=== PATIENT | female | born 1995 | race Caucasian/White ===

== ENCOUNTER 2022-06-04 13:58 | Outpatient (CLI) | payer BC | END 2022-06-04 13:59 | disposition home or self-care (01) | LOC: CSHMRI 13:58 | PROVIDERS: ATTEND Nurse Practitioner Family | DX: R93.6 Abnormal findings on diagnostic imaging of limbs (principal); Z33.1 Pregnant state, incidental ==

== ENCOUNTER 2022-07-12 17:05 | Day surgery (SDC) | payer BC ==
[2022-07-12 17:43] VITALS: BMI 40.6
[2022-07-12] MEDS ORDERED: hydrALAZINE 20 MG/ML VIAL SLOW IVP PRN (18:35)
== END 2022-07-12 18:32 | disposition home health service (06) ==
LOC: CSHLD/OP 17:05
PROVIDERS: ATTEND Advanced Practice Midwife
DX: O24.429 Gestational diabetes mellitus in childbirth, unspecified control (principal); O26.893 Other specified pregnancy related conditions, third trimester; R10.13 Epigastric pain; O99.213 Obesity complicating pregnancy, third trimester; E66.9 Obesity, unspecified; Z3A.36 36 weeks gestation of pregnancy

== ENCOUNTER 2023-09-19 18:10 | Emergency (ER) | payer BC ==
[2023-09-19] MEDS ORDERED: diphenhydrAMINE 50 MG/ML VIAL ONE (20:15)
[2023-09-19] MEDS ORDERED: Dexamethasone 10 MG/ML VIAL ONE (20:15)
[2023-09-19] MEDS ORDERED: Metoclopramide HCl 10 MG (2 mL) VIAL ONE (20:15)
[2023-09-19 21:07] LABS: #Eosinphils 0.1 10x3/uL (0.0-0.5); #Monocytes 0.4 10x3/uL (0.0-1.1); #Neutrophils 2.9 10x3/uL (1.5-8.4); %Basophils 0.7 % (0.0-2.0); %Eosinophils 1.8 % (0.0-6.0); %Lymphocytes 43.2 % (18.0-47.0); %Monocytes 6.9 % (0.0-10.0); %Neutrophils 47.2 % (40.0-75.0); Hematocrit 42.3 % (34.9-44.5); Hemoglobin 14.2 g/dL (12.0-15.5); Mean Corpuscular HGB CONC 33.6 g/dL (32.0-36.0); Mean Corpuscular Hemoglobin 29.3 pg (27.0-33.0); Mean Corpuscular Volume 87.4 fl (81.6-98.3); Mean Platelet Volume 10.6 fl (7.4-10.4); Platelet Count 196 10x3/uL (150-450); Red Blood Cell (RBC) Count 4.84 10x6/uL (3.90-5.03); White Blood Cell (WBC) Count 6.1 10x3/uL (3.5-10.5)
[2023-09-19 21:08] LABS: BHCG - Serum Negative (NEGATIVE); Pregs Control Background? CLEAR/WHITE (CLR/WHITE); Pregs Control Bar Appear? YES (CONTROL BAR)
[2023-09-19 21:15] LABS: ALT (SGPT) 11 U/L (8-55); AST (SGOT) 14 U/L (5-34); Albumin 4.1 g/dL (3.5-5.0); Alkaline Phosphatase 70 U/L (40-110); Anion Gap 12 mmol/L (10-20); BUN (Urea Nitrogen) 12 mg/dL (7.0-18.7); Bilirubin, Total 0.3 mg/dL (0.2-1.2); Calc. Creatinine Clearance 0 mL/min (70-130); Calcium 8.6 mg/dL (7.8-10.44); Carbon Dioxide 23 mmol/L (22-29); Chloride 108 mmol/L (98-107); Estimated GFR 97; Globulin 2.7 g/dL (2.4-3.5); Glucose 80 mg/dL (70-105); Potassium 3.7 mmol/L (3.5-5.1); Protein, Total 6.8 g/dL (6.0-8.3); Sodium 139 mmol/L (136-145)
[2023-09-19] MEDS ORDERED: Ketorolac Tromethamine 30 MG (1 mL) VIAL ONE (21:54)
[2023-09-19] MEDS ORDERED: Magnesium 2 GM/50 ML BAG (IN WATER) ONE (21:55)
== END 2023-09-19 22:49 | disposition home or self-care (01) ==
LOC: CSHERS 18:10
DX: R51.9 Headache, unspecified (principal)
CPT/HCPCS: 70450; 80053; 84703; 85025; 96374; 96375; J1100; J1200; J1885; J2765; J3475

== ENCOUNTER 2024-07-06 13:56 | Inpatient (IN) | payer BC ==
[2024-07-06] MEDS ORDERED: Ibuprofen 800 MG TAB PO PRN (16:20)
[2024-07-06] MEDS ORDERED: Lidocaine 1% (PF) 30 ML VIAL SC PRN (16:20)
[2024-07-06] MEDS ORDERED: HYDROcodone/Acetaminophen 5/325 mg Tablet PO PRN (16:20)
[2024-07-06 17:14] VITALS: BMI 34.2
[2024-07-06 17:43] LABS: #Basophils 0.03 10x3/uL (0.0-0.2); #Eosinophils 0.07 10x3/uL (0.0-0.5); #Monocytes 0.47 10x3/uL (0.0-1.1); %Basophils 0.5 % (0.0-2.0); %Eosinophils 1.1 % (0.0-6.0); %Lymphocytes 34.7 % (18.0-47.0); %Monocytes 7.2 % (0.0-10.0); %Neutrophils 56.2 % (40.0-75.0); Hematocrit 38.2 % (34.9-44.5); Hemoglobin 13.1 g/dL (12.0-15.5); Mean Corpuscular HGB CONC 34.3 g/dL (32.0-36.0); Mean Corpuscular Hemoglobin 30.2 pg (27.0-33.0); Mean Platelet Volume 10.7 fL (7.4-10.4); Platelet Count 185 10x3/uL (150-450); RBC Distribution Width 11.9 % (11.5-14.5); Red Blood Cell (RBC) Count 4.34 10x6/uL (3.90-5.03); White Blood Cell (WBC) Count 6.6 10x3/uL (3.5-10.5)
[2024-07-06 17:56] LABS: ALT (SGPT) 11 U/L (8-55); AST (SGOT) 12 U/L (5-34); Albumin 3.1 g/dL (3.5-5.0); Alkaline Phosphatase 70 U/L (40-110); Anion Gap 12 mmol/L (10-20); BUN (Urea Nitrogen) 11 mg/dL (7.0-18.7); Bilirubin, Total 0.2 mg/dL (0.2-1.2); Calc. Creatinine Clearance 167 mL/min (70-130); Calcium 9.2 mg/dL (7.8-10.44); Carbon Dioxide 23 mmol/L (22-29); Chloride 109 mmol/L (98-107); Estimated GFR 122; Glucose 90 mg/dL (70-105); Protein, Total 6.1 g/dL (6.0-8.3); Sodium 140 mmol/L (136-145)
[2024-07-06 18:15] LABS: HBsAg Index 0.21 S/CO (0-0.99); Hep B Surf Ag - L&D Non-Reactive S/CO (NonReactive)
[2024-07-06 18:33] LABS: Syphilis Antibody Nonreactive (Nonreactive); Syphilis Antibody Index 0.06 S/CO (<1.00 Non-Reactive)
[2024-07-06] MEDS: Lactated Ringer's 1,000 ML IV SCH (19:27)
[2024-07-06] MEDS: Zolpidem Tartrate 5 MG TAB PO PRN (19:57)
[2024-07-07] MEDS: Misoprostol 200 MCG TAB VAG SCH ×2 (04:42→07:42)
[2024-07-07] MEDS: Misoprostol 100 MCG TAB VAG SCH (05:02)
[2024-07-07] MEDS ORDERED: Misoprostol 100 MCG TAB VAG SCH (07:00)
[2024-07-07] MEDS ORDERED: Oxytocin 10 UNITS/ML VIAL ONE (09:15)
[2024-07-07] MEDS ORDERED: Oxytocin 30 units/NS 500 ML 0 ML ONE ×2 (09:16→16:28)
[2024-07-07] MEDS: Ketorolac Tromethamine 30 MG (1 mL) VIAL IVP SCH (11:15)
[2024-07-07] MEDS ORDERED: fentaNYL 50 mcg/mL 1 mL Vial ONE (11:34)
[2024-07-07] MEDS: fentaNYL 50 mcg/mL 1 mL Vial SLOW IVP PRN (11:41)
[2024-07-07] MEDS: Carboprost 250 MCG/ML AMP IM PRN (12:19)
[2024-07-07] MEDS: Loperamide HCl 2 MG CAP PO PRN (12:20)
== END 2024-07-07 17:00 | disposition home or self-care (01) | DRG 779 ==
LOC: CSHLD 13:56
PROVIDERS: ADMIT Student in an Organized Health Care Education/Training Program; ATTEND Student in an Organized Health Care Education/Training Program
PROC: 10D07Z8 Extraction of Products of Conception, Other, Via Natural or Artificial Opening (ICD-10-PCS; principal; 2024-07-07)
DX: O02.1 Missed abortion (principal); Z91.018 Allergy to other foods
CPT/HCPCS: 36415; 80053; 85025; 86780; 86850; 86900; 86901; 87340; 88300; 88305; J1885; J3010; J3490

== ENCOUNTER 2025-03-14 16:35 | Day surgery (SDC) | payer BC ==
[2025-03-14] MEDS ORDERED: hydrALAZINE 20 MG/ML VIAL SLOW IVP PRN (17:01)
[2025-03-14 17:12] VITALS: BMI 37.3
[2025-03-14 17:41] LABS: Glucose, Urine (Dipstick) Normal (Negative); Leukocyte 100 (Negative); Protein, Urine (Dipstick) 15 mg/dl (Neg-Trace); Specific Gravity, Urine 1.025 (1.005-1.030)
[2025-03-14 17:49] LABS: CAUTI Indications for Culture Pregnancy; RBC/HPF 0-3 HPF (0-3)
[2025-03-14 17:50] LABS: Bacteria/HPF 2+ HPF (None Seen)
[2025-03-14 17:51] LABS: Mucous/LPF Rare LPF (<2+); Yeast-Budding Rare HPF (None Seen)
[2025-03-14 17:53] LABS: Urine Culture Reflex Yes Yes
[2025-03-14 18:49] LABS: Fetal Membranes Rupture No Membranes Rupture (No Rupture)
[2025-03-14] MEDS ORDERED: Fosfomycin 3 GM/Packet PO SCH (19:30)
== END 2025-03-14 19:40 | disposition home or self-care (01) ==
LOC: CSHLD/OP 16:35
PROVIDERS: ATTEND Student in an Organized Health Care Education/Training Program
DX: O42.912 Preterm premature rupture of membranes, unspecified as to length of time between rupture and onset of labor, second trimester (principal); O24.419 Gestational diabetes mellitus in pregnancy, unspecified control; Z3A.23 23 weeks gestation of pregnancy; Z91.048 Other nonmedicinal substance allergy status; Z91.018 Allergy to other foods; Z88.1 Allergy status to other antibiotic agents
CPT/HCPCS: 81001; 84112; 87086; 87480; 87510; 87660; 99285

== ENCOUNTER 2025-03-19 13:25 | Day surgery (SDC) | payer BC ==
[2025-03-19] MEDS ORDERED: hydrALAZINE 20 MG/ML VIAL SLOW IVP PRN (14:57)
[2025-03-19 15:11] VITALS: BMI 36.6
[2025-03-19 15:58] LABS: Fetal Membranes Rupture No Membranes Rupture (No Rupture)
[2025-03-19 17:00] LABS: Glucose, Urine (Dipstick) Normal (Negative); Leukocyte 25 (Negative); Protein, Urine (Dipstick) 15 mg/dl (Neg-Trace); Specific Gravity, Urine 1.025 (1.005-1.030)
[2025-03-19 17:17] LABS: CAUTI Indications for Culture Pregnancy; RBC/HPF 0-3 HPF (0-3)
[2025-03-19 17:19] LABS: Bacteria/HPF 2+ HPF (None Seen); Mucous/LPF 1+ LPF (<2+)
[2025-03-19 17:21] LABS: Urine Culture Reflex Yes Yes
== END 2025-03-19 18:02 | disposition home or self-care (01) ==
LOC: CSHLD/OP 13:25
PROVIDERS: ATTEND Student in an Organized Health Care Education/Training Program
DX: Z03.71 Encounter for suspected problem with amniotic cavity and membrane ruled out (principal); O23.592 Infection of other part of genital tract in pregnancy, second trimester; B96.89 Other specified bacterial agents as the cause of diseases classified elsewhere; Z88.1 Allergy status to other antibiotic agents; Z91.048 Other nonmedicinal substance allergy status; Z91.018 Allergy to other foods; Z3A.24 24 weeks gestation of pregnancy
CPT/HCPCS: 76815; 76817; 81001; 84112; 87086; 87480; 87510; 87660

== ENCOUNTER 2025-04-27 10:28 | Day surgery (SDC) | payer BC ==
[2025-04-27] MEDS ORDERED: hydrALAZINE 20 MG/ML VIAL SLOW IVP PRN (10:42)
[2025-04-27 10:54] VITALS: BMI 36.6
== END 2025-04-27 11:59 | disposition home health service (06) ==
LOC: CSHLD/OP 10:28
PROVIDERS: ATTEND Student in an Organized Health Care Education/Training Program
DX: O36.8130 Decreased fetal movements, third trimester, not applicable or unspecified (principal); Z3A.29 29 weeks gestation of pregnancy; Z91.018 Allergy to other foods; Z88.1 Allergy status to other antibiotic agents; Z88.8 Allergy status to other drugs, medicaments and biological substances
CPT/HCPCS: 76819; 99283

== ENCOUNTER 2025-06-14 12:37 | Day surgery (SDC) | payer BC ==
[2025-06-14] MEDS ORDERED: hydrALAZINE 20 MG/ML VIAL SLOW IVP PRN (13:10)
== END 2025-06-14 14:02 | disposition home or self-care (01) ==
LOC: CSHLD/OP 12:37
PROVIDERS: ATTEND Student in an Organized Health Care Education/Training Program
DX: O47.1 False labor at or after 37 completed weeks of gestation (principal); Z3A.36 36 weeks gestation of pregnancy; Z79.899 Other long term (current) drug therapy; Z88.1 Allergy status to other antibiotic agents; Z91.018 Allergy to other foods; Z91.09 Other allergy status, other than to drugs and biological substances
CPT/HCPCS: 99283